=== PATIENT | male | born 1970 | race Caucasian/White ===

== ENCOUNTER 2018-10-18 13:00 | Emergency (ER) | payer MEDICARE, MEDICAID ==
[~2018-10-18] VITALS: Ht 180.3 cm; Wt 78.0 kg
[2018-10-18 13:07] VITALS: BP 109/78
[2018-10-19] MEDS ORDERED: SULF1TAB49 PO (13:38)
== END 2018-10-18 14:49 | disposition left against medical advice (07) ==
LOC: ER 13:00
DX: Z53.21 Procedure and treatment not carried out due to patient leaving prior to being seen by health care provider (principal)

== ENCOUNTER → 2018-10-19 | Emergency (ER) | payer MEDICARE, MEDICAID ==
[~2018-10-19] VITALS: Ht 167.6 cm; Wt 81.0 kg
[~2018-10-19] MED LIST: LIDOcaine 1% w/epiNEPHrine 1:200,000 30ml vial IJ ONE; LIDOcaine 1.5% w/epinephrine 1:200,000 5ml ampul IJ ONE; SULF1TAB49 PO; TETanus/Pertussis (Acell)/Diphther VAC/PF (Tdap-Adult) 0.5ml syringe IM ONE; bacitracin 15gm ointment TP ONE
[2018-10-19 12:16] VITALS: BP 140/90
== END | disposition home or self-care (01) ==
LOC: ER 12:04
DX: L02.413 Cutaneous abscess of right upper limb (principal); Z59.0 Homelessness
CPT/HCPCS: 10060; 90471; 90715; 99283; J3490

== ENCOUNTER 2019-01-09 02:13 | Emergency (ER) | payer MEDICARE, MEDICAID ==
[~2019-01-09] VITALS: Ht 180.3 cm; Wt 70.0 kg
[2019-01-09 02:15] VITALS: BP 157/77
--- NOTE | 2019-01-09 02:29 | NUR ---
no idea who [id number] no rpd [id number]
[2019-01-09] MEDS ORDERED: LIDOcaine 1% w/epiNEPHrine 1:200,000 30ml vial IM ONE (02:40)
[2019-01-09] MEDS ORDERED: acetaminophen 325mg tablet PO ONE (02:40)
[2019-01-09] MEDS ORDERED: DOXYCYCLINE 100MG CAPSULE PO STA (04:03)
[2019-01-09] MEDS ORDERED: DOXY100C2 PO (04:05)
== END 2019-01-09 04:12 | disposition home or self-care (01) ==
LOC: ER 02:13
DX: S06.0X0A Concussion without loss of consciousness, initial encounter (principal); S01.01XA Laceration without foreign body of scalp, initial encounter; F17.210 Nicotine dependence, cigarettes, uncomplicated; Z98.890 Other specified postprocedural states; Z60.2 Problems related to living alone; Z79.899 Other long term (current) drug therapy; Y08.89XA Assault by other specified means, initial encounter; Y93.89 Activity, other specified; Y99.8 Other external cause status; Y92.89 Other specified places as the place of occurrence of the external cause
CPT/HCPCS: 12002; 70450; 99284; J3490

== ENCOUNTER 2019-01-25 12:33 | Emergency (ER) | payer MEDICARE, MEDICAID ==
[~2019-01-25] VITALS: Ht 180.3 cm; Wt 71.7 kg
[2019-01-25 13:02] VITALS: BP 116/73
== END 2019-01-25 15:13 | disposition left against medical advice (07) ==
LOC: ER 12:33
DX: M25.532 Pain in left wrist (principal); Z53.21 Procedure and treatment not carried out due to patient leaving prior to being seen by health care provider

== ENCOUNTER 2019-02-13 13:11 | Emergency (ER) | payer MEDICARE, MEDICAID ==
[~2019-02-13] VITALS: Ht 180.3 cm; Wt 73.0 kg
[2019-02-13 13:21] VITALS: BP 103/68
== END 2019-02-13 15:17 | disposition left against medical advice (07) ==
LOC: ER 13:12
DX: R51 Headache (principal); Z53.21 Procedure and treatment not carried out due to patient leaving prior to being seen by health care provider
CPT/HCPCS: 99281